=== PATIENT | female | born 1985 | race Two or more races ===

== ENCOUNTER 2020-09-13 12:02 | Emergency (ER) | payer SELFPAY ==
[~2020-09-13] VITALS: Ht 162.6 cm; Wt 60.9 kg
[~2020-09-13 12:02] MED LIST: NAPR500T8 PO; OXYC1TAB15 PO; PNV1TABL25 PO
[2020-09-13 13:06] LABS: BILIRUBIN,URINE NEGATIVE (NEG); CLARITY,URINE CLOUDY; COLOR,URINE YELLOW; NITRITE,URINE POSITIVE (NEG); PH,URINE 7.5 (<5.0-8.0); PROTEIN,URINE NEGATIVE (NEG-TRACE); UROBILINOGEN,URINE 0.2 mg/dL (0.2 mg/dL)
[2020-09-13] MEDS ORDERED: ACETAMINOPHEN 500 MG TABLET PO ONE (13:15)
--- NOTE | 2020-09-13 13:15 | PHYS DOC ---
Past Medical History Past Medical History: Other Additional Past Medical Histor: GESTATIONAL DIABETES Past Surgical History: No Surgical History Smoking Status: Never Smoker Alcohol Use: None Drug Use: None General Adult EDM: Chief Complaint: ABDOMINAL PAIN IN HPI: HPI: Patient is a 35 year old female who presents with 16 weeks and goes to [facility] for her OB care. She was actually there yesterday did not have right lower quadrant pain. Last night she again having right lower quadrant pain that radiates to her right lower back that is a stabbing type pain. She is not taking any medications to help this pain. Patient denies nausea, vomiting, diarrhea, fever, chest pain, cough, dizziness, headache, vaginal discharge, vaginal bleeding, shortness of air. She has a history of gestational diabetes. Patient rates her pain an 8 out of 10. Review of Systems: Review of Systems: Constitutional: Denies fever or chills. [] Eyes: Denies change in visual acuity. [] HENT: Denies nasal congestion or sore throat. [] Respiratory: Denies cough or shortness of breath. [] Cardiovascular: Denies chest pain or edema. [] GI: + Right lower quadrant abdominal pain, denies nausea, vomiting, bloody stools or diarrhea. [] : Denies dysuria. [] Musculoskeletal: +Right back pain or joint pain. [] Integument: Denies rash. [] Neurologic: Denies headache, focal weakness or sensory changes. [] Endocrine: Denies polyuria or polydipsia. [] Lymphatic: Denies swollen glands. [] Psychiatric: Denies depression or anxiety. [] Heart Score: Risk Factors: Risk Factors: DM, Current or recent (<one month) smoker, HTN, HLP, family history of CAD, obesity. Risk Scores: Score 0 - 3: 2.5% MACE over next 6 weeks - Discharge Home Score 4 - 6: 20.3% MACE over next 6 weeks - Admit for Clinical Observation Score 7 - 10: 72.7% MACE over next 6 weeks - Early Invasive Strategies Allergies: Allergies: Allergies Coded Allergies Type Severity Reaction Last Updated Verified No Known Drug Allergies 04/08/16 No Physical Exam: PE: Constitutional: Well developed, well nourished, no acute distress, non-toxic appearance. [] HENT: Normocephalic, atraumatic, bilateral external ears normal, oropharynx moist, no oral exudates, nose normal. [] Eyes: PERRLA, EOMI, conjunctiva normal, no discharge. [] Neck: Normal range of motion, no tenderness, supple, no stridor. [] Cardiovascular:Heart rate regular rhythm, no murmur [] Lungs & Thorax: Bilateral breath sounds clear to auscultation [] Abdomen: Bowel sounds normal, soft, no tenderness, no masses, no pulsatile masses. [] Skin: Warm, dry, no erythema, no rash. [] Back: No tenderness, no CVA tenderness. [] Extremities: No tenderness, no cyanosis, no clubbing, ROM intact, no edema. [] Neurologic: Alert and oriented X 3, normal motor function, normal sensory function, no focal deficits noted. [] Psychologic: Affect normal, judgement normal, mood normal. Normal physical exam [] Current Patient Data: Labs: Laboratory Tests Test 09/13/20 12:15 POC Urine HCG, Qualitative Hcg positive (Negative) Vital Signs: Vital Signs Date Time Temp Pulse Resp B/P (MAP) Pulse Ox O2 Delivery O2 Flow Rate FiO2 09/13/20 12:17 98.4 89 20 108/70 (83) 96 Room Air 98.4 EKG: EKG: [] Radiology/Procedures: Radiology/Procedures: [] Impression: [facility] [address] [place] [address] IMAGING REPORT Signed PATIENT: MONIQUE RAMOS ACCOUNT: [id number] : 1985 LOCATION: ER AGE: 35 SEX: F EXAM STATUS: REG ER ORD. PHYSICIAN: PITO VIERA APRN REASON: CHECK APPENDIX PLEASE PROCEDURE: RIGHT LOWER QUANDRANT INDICATION: Right lower quadrant pain COMPARISON: None. FINDINGS: Focused ultrasound images are obtained of the right lower quadrant of the abdomen. Multiple loops of bowel are seen within the region with the appendix not visualized on focused ultrasound. IMPRESSION: * The appendix is not visualized on focused ultrasound. Electronically signed by: Gibson Akins MD (09/13/2020 2:21 PM) [id number] DICTATED and SIGNED BY: GIBSON AKINS MD DATE: 09/13/20 [id number] [facility] [address] [place], [place] [id number] IMAGING REPORT Signed PATIENT: MONIQUE RAMOS ACCOUNT: [id number] : 1985 LOCATION: ER AGE: 35 SEX: F EXAM STATUS: REG ER ORD. PHYSICIAN: PITO VIERA APRN REASON: RLQ PAIN PROCEDURE: PREG MORE THAN OR EQ TO 14 WKS EXAM: Ultrasound OB Greater than 14 weeks INDICATION: Reason: RLQ PAIN in TECHNIQUE: Real-time obstetrical ultrasound was performed with permanent freeze-frame documentation. COMPARISON: None. FINDINGS: POSITION: Variable HEART RATE: 149 bpm ARNOL: 14.6 cm PLACENTA: Anterior CERVICAL LENGTH: 4.4 cm MATERNAL UTERUS: Unremarkable. MATERNAL ADNEXA: Unremarkable. AGE/DATES: Gestational Age by LMP: 21 weeks 0 days Gestation Age by US: 21 weeks 3 days EDC by LMP: January 24, 2021 EDC by US: January 21, 2021 WEIGHT: 427 grams +/- 63 grams PERCENTILE WEIGHT: Not estimated. BIOMETRIC PARAMETERS: BPD: 5.0 cm corresponding with 21 weeks 2 days HC: 18.9 cm corresponding with 21 weeks 2 days AC: 16.6 cm corresponding with 21 weeks 5 days FL: 3.6 cm corresponding with 21 weeks 3 days ANATOMY: CARDIAC: Four-chamber heart not well demonstrated on this exam. UMBILICAL CORD: Number vessels in the cord not assessed. Normal cord insertion. BRAIN: Not assessed in detail NOSE/LIPS: Unremarkable. SPINE: Unremarkable. EXTREMITIES: Unremarkable. STOMACH: Not well shown KIDNEYS: Unremarkable. BLADDER: Unremarkable. IMPRESSION: OB ultrasound demonstrating a single viable fetus in variable position. Estimated gestational age of 21 weeks 3 days and EDC of January 21, 2021. Electronically signed by: Rajesh Richmond MD (09/13/2020 3:36 PM) [id number] DICTATED and SIGNED BY: RAJESH RICHMOND MD DATE: 09/13/20 [id number] 0 Course & Med Decision Making: Course & Med Decision Making Pertinent Labs and Imaging studies reviewed. (See chart for details) See HPI. Alert and oriented x4. She states nothing makes his pain worse or better. Ambulatory with a steady gait. Speaks in full complete sentences. Abdomen is rounded but soft and nontender. No CVA tenderness. Vital signs are within normal limits. She is afebrile. Skin pink warm and dry. Patient denies any urinary symptoms. Ultrasound is unable to see appendix. OB ultrasound shows no acute findings. Patient has a urinary tract infection of which she is given Rocephin IV. Blood work otherwise unremarkable. Afebrile. She will be treated with Keflex antibiotic. [] Dragon Disclaimer: Dragon Disclaimer: This electronic medical record was generated, in whole or in part, using a voice recognition dictation system. Departure Departure Impression: Primary Impression: UTI (urinary tract infection) in in third trimester Disposition: 01 DC HOME SELF CARE/HOMELESS Condition: STABLE Referrals: UNKNOWN PCP NAME (PCP) Patient Instructions: - Urinary Tract Infection Additional Instructions: Follow-up with your OB doctor soon as possible. Drink plenty of fluids. Take medication as prescribed and with food. Take Tylenol for your pain. Scripts Cephalexin (KEFLEX) 500 Mg Capsule 1 CAP PO BID for 7 Days, #14 CAP 0 Refills Prov: PITO VIERA APRN 09/13/20 PITO VIERA APRN Sep 13, 2020 13:15
[2020-09-13 13:19] LABS: AMORPHOUS SEDIMENT,UR PRESENT /HPF; BACTERIA,URINE MANY /HPF (0-FEW); RBC,URINE 0 /HPF (0-2); WBC,URINE TNTC /HPF (0-4)
[2020-09-13 13:24] LABS: BASO % 0 % (0-3); EOS % 1 % (0-3); HEMATOCRIT 33.7 % (36.0-47.0); HEMOGLOBIN 11.6 g/dL (12.0-15.5); LYMPH # 1.4 x10^3/uL (1.0-4.8); LYMPH % 16 % (24-48); MEAN CORPUSCULAR HEMOGLOBIN 30 pg (25-35); MEAN CORPUSCULAR HGB CONC 34 g/dL (31-37); MEAN CORPUSCULAR VOLUME 88 fL (79-100); MONO # 0.5 x10^3/uL (0.0-1.1); MONO % 5 % (0-9); NEUT # 7.1 x10^3/uL (1.8-7.7); NEUT % 78 % (31-73); PLATELET COUNT 197 x10^3/uL (140-400); RED BLOOD COUNT 3.81 x10^6/uL (3.50-5.40); RED CELL DISTRIBUTION WIDTH 13.1 % (11.5-14.5); WHITE BLOOD COUNT 9.1 x10^3/uL (4.0-11.0)
[2020-09-13 13:34] LABS: CALCIUM 8.7 mg/dL (8.5-10.1); CREATININE 0.4 mg/dL (0.6-1.0); GFR 180.6; POTASSIUM 3.8 mmol/L (3.5-5.1)
[2020-09-13 13:40] LABS: ALBUMIN 2.7 g/dL (3.4-5.0); ALBUMIN/GLOBULIN RATIO 0.7 (1.0-1.7); TOTAL BILIRUBIN 0.2 mg/dL (0.2-1.0); TOTAL PROTEIN 6.8 g/dL (6.4-8.2)
[2020-09-13] MEDS ORDERED: cefTRIAXone IV Push 1 GM VIAL. IVP ONE (14:15)
[2020-09-13] MEDS ORDERED: IV NORMAL SALINE 1000ML BAG 1,000 ML IV ONE (14:15)
--- NOTE | 2020-09-13 14:24 | RAD ---
INDICATION: Right lower quadrant pain COMPARISON: None. FINDINGS: Focused ultrasound images are obtained of the right lower quadrant of the abdomen. Multiple loops of bowel are seen within the region with the appendix not visualized on focused ultrasound. IMPRESSION: * The appendix is not visualized on focused ultrasound. Electronically signed by: Kyle Da Silva MD (09/13/2020 2:21 PM) [id number]
[2020-09-13] MEDS ORDERED: CEPH-264 PO (14:56)
--- NOTE | 2020-09-13 15:39 | RAD ---
EXAM: Ultrasound OB Greater than 14 weeks INDICATION: Reason: RLQ PAIN in TECHNIQUE: Real-time obstetrical ultrasound was performed with permanent freeze-frame documentation. COMPARISON: None. FINDINGS: POSITION: Variable HEART RATE: 149 bpm ARNOL: 14.6 cm PLACENTA: Anterior CERVICAL LENGTH: 4.4 cm MATERNAL UTERUS: Unremarkable. MATERNAL ADNEXA: Unremarkable. AGE/DATES: Gestational Age by LMP: 21 weeks 0 days Gestation Age by US: 21 weeks 3 days EDC by LMP: January 24, 2021 EDC by US: January 21, 2021 WEIGHT: 427 grams +/- 63 grams PERCENTILE WEIGHT: Not estimated. BIOMETRIC PARAMETERS: BPD: 5.0 cm corresponding with 21 weeks 2 days HC: 18.9 cm corresponding with 21 weeks 2 days AC: 16.6 cm corresponding with 21 weeks 5 days FL: 3.6 cm corresponding with 21 weeks 3 days ANATOMY: CARDIAC: Four-chamber heart not well demonstrated on this exam. UMBILICAL CORD: Number vessels in the cord not assessed. Normal cord insertion. BRAIN: Not assessed in detail NOSE/LIPS: Unremarkable. SPINE: Unremarkable. EXTREMITIES: Unremarkable. STOMACH: Not well shown KIDNEYS: Unremarkable. BLADDER: Unremarkable. IMPRESSION: OB ultrasound demonstrating a single viable fetus in variable position. Estimated gestational age of 21 weeks 3 days and EDC of January 21, 2021. Electronically signed by: Daly Richmond MD (09/13/2020 3:36 PM) [id number]
[2020-09-13 15:41] VITALS: BP 101/60
== END 2020-09-13 15:55 | disposition home or self-care (01) ==
LOC: ER 12:02
DX: O23.42 Unspecified infection of urinary tract in pregnancy, second trimester (principal); O24.419 Gestational diabetes mellitus in pregnancy, unspecified control; R10.31 Right lower quadrant pain; Z3A.21 21 weeks gestation of pregnancy
CPT/HCPCS: 36415; 76805; 80053; 81001; 81025; 84702; 85025; 86850; 86900; 86901; 87086; 93975; 96361; 96374; 99285; J0696; J7030

== ENCOUNTER 2020-10-30 22:06 | Observation (INO) | payer OTHER ==
[~2020-10-30 22:06] MED LIST changes: +CEPH-264 PO
[2020-10-30] MEDS ORDERED: IV RINGERS,LACTATED 1000ML 1,000 ML IV SCH (22:15)
[2020-10-30] MEDS ORDERED: ACETAMINOPHEN 325 MG TABLET. PO PRN (22:15)
[2020-10-30] MEDS ORDERED: ONDANSETRON PF 4 MG/2 ML VIAL. IVP PRN (22:15)
[2020-10-30 22:52] LABS: BILIRUBIN,URINE NEGATIVE (NEG); CLARITY,URINE CLEAR; COLOR,URINE ORANGE; NITRITE,URINE POSITIVE (NEG); PROTEIN,URINE NEGATIVE (NEG-TRACE)
[2020-10-30 23:02] LABS: BACTERIA,URINE MANY /HPF (0-FEW); RBC,URINE 0 /HPF (0-2)
[2020-10-30] MEDS ORDERED: MAGNESIUM CITRATE 296 ML SOLUTION. PO ONE (23:45)
[2020-10-31] MEDS ORDERED: DOCUSATE SODIUM 283 MG/5 ML ENEMA. PR PRN
[2021-01-07] MEDS ORDERED: IBUP-1060 PO (12:25)
[2021-01-07] MEDS ORDERED: OXYC1TAB15 PO (12:25)
[2021-01-07] MEDS ORDERED: DOCU-109 PO (12:25)
== END 2020-10-31 00:48 | disposition home or self-care (01) ==
LOC: 3 SO LND 22:06
PROVIDERS: ADMIT Obstetrics & Gynecology; ATTEND Obstetrics & Gynecology
DX: O23.42 Unspecified infection of urinary tract in pregnancy, second trimester (principal); O22.42 Hemorrhoids in pregnancy, second trimester; O26.892 Other specified pregnancy related conditions, second trimester; K59.00 Constipation, unspecified; Z3A.27 27 weeks gestation of pregnancy
CPT/HCPCS: 59025; 81001; 87086; G0378; G0379; 87077; 87186